=== PATIENT | female | born 1950 | race Caucasian/White ===

== ENCOUNTER 2019-04-12 16:14 | Emergency (ER) | payer MEDICARE, OTHER ==
[~2019-04-12] VITALS: Ht 157.5 cm; Wt 90.8 kg
[~2019-04-12 16:14] MED LIST: AMLO5TAB4 PO; ASPI-817 PO; ATOR40TA68 PO; BENA20TA65 PO; GLIM2TAB PO; LEVA15HF6 INH; LEVO500T10 PO; METO-448 PO; TRAM50TA2 PO
[2019-04-12 16:44] VITALS: Ht 157.5 cm; Wt 90.8 kg
[2019-04-12] MEDS ORDERED: MELO15TA30 PO (17:30)
[2019-04-12] MEDS ORDERED: ACAR50TA PO (17:30)
[2019-04-12] MEDS ORDERED: ASPI-817 PO (17:30)
[2019-04-12] MEDS ORDERED: CHOL200056 PO (17:31)
[2019-04-12] MEDS ORDERED: BENA20TA4 PO (17:31)
[2019-04-12] MEDS ORDERED: ATOR40TA68 PO (17:31)
[2019-04-12] MEDS ORDERED: LINA5TAB PO (17:32)
[2019-04-12] MEDS ORDERED: METF100010 PO (17:32)
[2019-04-12] MEDS ORDERED: KETOROLAC 15 MG INJ IV STA (17:40)
[2019-04-12] MEDS ORDERED: SOD CHLORIDE 0.9% 1,000 ML IV STA (17:40)
--- NOTE | 2019-04-12 18:54 | ERD ---
ER Documentation Chief Complaint Chief Complaint SOB, RIGHT CHEST WALL PAIN, RADIATES TO RIGHT ARM, NO COUGH HPI This is a 69-year-old female who presents to the emergency room complaining of right-sided back pain. History provided by patient with family member interpreting. Patient has had at least 2 to 3 weeks of upper back pain that is worse with rotational movement of the upper extremity and rotational movement of the back. She denies any significant cough or pleuritic discomfort. No fevers or chills no exertional symptoms. Patient is seen primary care physician and started on nonsteroidal anti-inflammatory with mild improvement. She noted an exacerbation of pain today which prompted ER visit. Pain is moderate currently. ROS All systems reviewed and are negative except as per history of present illness. Medications Home Meds Reported Medications Linagliptin (TRADJENTA) 5 Mg Tablet, 5 MG PO DAILY, TAB 04/12/19 Metformin Hcl* (Metformin Hcl*) 1,000 Mg Tablet, 1000 MG PO WITH BREAKFAST DINNE, #60 TAB 04/12/19 Atorvastatin* (Atorvastatin*) 40 Mg Tablet, 40 MG PO QHS, #30 TAB 04/12/19 Benazepril Hcl* (Benazepril Hcl*) 20 Mg Tablet, 20 MG PO DAILY, #30 TAB 04/12/19 Cholecalciferol (Vitamin D3) (Vitamin D-3) 2,000 Unit Tablet, 2000 UNIT PO DAILY, TAB 04/12/19 Meloxicam* (Mobic*) 15 Mg Tablet, 15 MG PO DAILY, #30 TAB 04/12/19 Acarbose* (Precose*) 50 Mg Tablet, 50 MG PO WITH MEALS, TAB 04/12/19 Aspirin* (Aspirin* EC) 81 Mg Tablet.dr, 81 MG PO DAILY, TAB 04/12/19 Discontinued Reported Medications Aspirin* (Aspirin* EC) 81 Mg Tablet.dr, 81 MG PO DAILY, TAB 12/20/15 Atorvastatin* (Atorvastatin*) 40 Mg Tablet, 40 MG PO DAILY 12/19/15 Glimepiride* (Glimepiride*) 2 Mg Tablet, 2 MG PO BID 12/19/15 Discontinued Scripts Tramadol HCl (Tramadol HCl) 50 Mg Tablet, 50 MG PO Q6H PRN for PAIN, #20 TAB Prov:JANUSZ PEPPER SPINNING OPERATOR 12/22/15 Levofloxacin* (Levofloxacin*) 500 Mg Tablet, 500 MG PO DAILY for 7 Days, TAB Prov:JANUSZ PEPPER SPINNING OPERATOR 12/22/15 Metoprolol Tartrate* (Lopressor*) 25 Mg Tab, 25 MG PO BID for 30 Days, TAB Prov:REGJANUSZ CALLEJAS SPINNING OPERATOR 12/22/15 Amlodipine Besylate* (Norvasc*) 5 Mg Tab, 5 MG PO BID for 30 Days, TAB Prov:JANUSZ PEPPER SPINNING OPERATOR 12/22/15 Benazepril Hcl* (Lotensin*) 20 Mg Tab, 20 MG PO DAILY for 30 Days, TAB Prov:REGJANUSZ CALLEJAS SPINNING OPERATOR 12/22/15 Levalbuterol* (Xopenex* HFA) 15 Gm Inha, 1-2 PUFF INH Q4 PRN for SHORTNESS OF BREATH, #1 EA Prov:JANUSZ PEPPER SPINNING OPERATOR 12/22/15 Allergies Allergies: Coded Allergies: No Known Allergy (Unverified , 04/12/19) PMhx/Soc History of Surgery: No Anesthesia Reaction: No Hx Neurological Disorder: No Hx Respiratory Disorders: No Hx Cardiac Disorders: Yes (HRN HI CHOLESTEROL) Hx Psychiatric Problems: No Hx Miscellaneous Medical Probl: Yes (DM) Hx Alcohol Use: No Hx Substance Use: No Hx Tobacco Use: Yes Smoking Status: Former smoker FmHx Family History: No diabetes Physical Exam Vitals Vital Signs Date Temp Pulse Resp B/P (MAP) Pulse Ox O2 O2 Flow FiO2 Time Delivery Rate 04/12/19 92 22 178/91 96 Room Air 18:32 (120) 04/12/19 98.0 102 18 170/93 95 16:44 (118) Physical Exam General: Well developed, well nourished, no acute distress Head: Normocephalic, atraumatic. Eyes: Pupils equally reactive, EOM intact ENT: Moist mucous membranes Neck: Supple, no lymphadenopathy Respiratory: Lungs clear bilaterally, no distress Cardiovascular: RRR, no murmurs, rubs, or gallops Abdominal: Soft, non-tender, non-distended, no peritoneal signs : Deferred MSK: No edema, no unilateral swelling, 5/5 strength, reproducible soft tissue tenderness along the upper back trapezius muscles Neurologic: Alert and oriented, moving all extremities, normal speech, no focal weakness, no cerebellar signs Skin: No rash Psych: Normal mood Result Diagram: 04/12/19174904/12/19 175 Results 24 hrs Laboratory Tests Test 04/12/19 17:50 White Blood Count 11.5 10^3/ul Red Blood Count 4.87 10^6/ul Hemoglobin 13.6 g/dl Hematocrit 43.1 % Mean Corpuscular Volume 88.5 fl Mean Corpuscular Hemoglobin 27.9 pg Mean Corpuscular Hemoglobin Concent 31.6 g/dl Red Cell Distribution Width 14.4 % Platelet Count 315 10^3/UL Mean Platelet Volume 10.3 fl Immature Granulocytes % 0.300 % Neutrophils % 67.9 % Lymphocytes % 24.0 % Monocytes % 6.2 % Eosinophils % 1.0 % Basophils % 0.6 % Nucleated Red Blood Cells % 0.0 /100WBC Immature Granulocytes # 0.040 10^3/ul Neutrophils # 7.8 10^3/ul Lymphocytes # 2.8 10^3/ul Monocytes # 0.7 10^3/ul Eosinophils # 0.1 10^3/ul Basophils # 0.1 10^3/ul Nucleated Red Blood Cells # 0.0 10^3/ul Prothrombin Time 12.1 Sec Prothrombin Time Ratio 0.9 INR International Normalized Ratio 0.89 Activated Partial Thromboplast Time 25.6 Sec D-Dimer 335.76 ng/ml D-Dimer Comment Sodium Level 139 mmol/L Potassium Level 4.3 mmol/L Chloride Level 103 mmol/L Carbon Dioxide Level 23 mmol/L Anion Gap 13 Blood Urea Nitrogen 21 mg/dl Creatinine 0.67 mg/dl Est Glomerular Filtrat Rate mL/min > 60 mL/min Glucose Level 201 mg/dl Calcium Level 9.9 mg/dl Troponin I < 0.012 ng/ml Current Medications Medications Dose Sig/Conor Start Time Status Last (Trade) Ordered Route PRN Stop Time Admin Dose Reason Admin Sodium 1,000 ml @ Q1H STAT 04/12/19 DC 04/12/19 Chloride 1,000 mls/hr IV 17:40 17:57 04/12/19 18:39 Ketorolac 15 mg ONCE STAT 04/12/19 DC 04/12/19 Tromethamine IV 17:40 17:57 (Toradol) 04/12/19 17:41 Procedures/MDM EKG, MONITORS, & DIAGNOSTIC IMAGING: EKG: I reviewed and interpreted a 12-lead EKG. Rhythm: Normal sinus rhythm ST Changes: No contiguous ST segment elevations T waves: No contiguous T wave inversions Impression: No evidence of acute cardiac ischemia Chest x-ray: I reviewed and interpreted a 1 view of the chest Mediastinum: No enlargement Cardiac silhouette: No cardiomegaly Airspace: Clear lung caballero bilaterally without evidence of pneumothorax Bones: No evidence of fracture LAB INTERPRETATION: I reviewed the laboratory testing and it shows no evidence of acute process MEDICAL DECISION MAKING: Patient's presentation seems very consistent with musculoskeletal etiology. The patient has reproducible symptoms, subacute presentation. Her presentation does not seem to be consistent with dissection, acute coronary syndrome or pulmonary embolism. She has no pleuritic pain no risk factors for PE. The patient's blood pressure slightly elevated she has a known history of blood pressure and has very reproducible symptoms. She has had at least 2 weeks of symptoms therefore dissection seems extremely unlikely. I do not believe CT of the chest is necessary. A d-dimer will be appropriate to screen for pulmonary embolism given Wells low risk criteria. ER COURSE: * Laboratory testing is reassuring including negative d-dimer, normal troponin. Chest x-ray imaging normal. No evidence of pneumothorax or pneumonia. * Symptoms improving. * At this point I feel the patient can be safely discharged with close primary care follow-up. Again consider muscular skeletal etiology versus radiculopathy. Return precautions were discussed and understood. CONSULTATION: None DISPOSITION PLAN: The patient does not have an identifiable emergent medical condition that warrants inpatient hospitalization at this time. The patient is deemed safe for discharge with outpatient follow-up. We discussed follow up with the patient's primary care doctor within 24 to 48 hours as needed. We also discussed return to the emergency room for worsening symptoms or worsening condition. Outpatient referral: None required Discharge Medications: None required Departure Diagnosis: Primary Impression: Back pain Back pain location: thoracic back pain Chronicity: acute Back pain laterality: right Qualified Codes: M54.6 - Pain in thoracic spine Condition: Stable Patient Instructions: Back Pain (Acute Or Chronic) [facility]errals[facility] Usted se byrne hecho un examen mdico de control que le indica que no est en fabiana condicin que requiera tratamiento urgente en el Departamento de Emergencia. Un estudio ms profundo y el tratamiento de keita condicin pueden esperar sin ningn riesgo hasta que usted sea atendida/o en el consultorio de keita mdico o fabiana clnica. Es responsabilidad suya arreglar fabiana jonathon para el seguimiento del addi. MANEJO DE CONDICIONES NO URGENTES EN EL FUTURO 1) Si usted tiene un mdico de atencin primaria: Usted debera llamar a keita mdico de atencin primaria antes de venir al departamento de emergencia. Despus de las horas de consultorio, keita doctor o keita asociado/a est disponible por telfono. El mdico o enfermero de radhika en el servicio telefnico puede asesorarle por mike medio para atender el problema, o addi contrario se puede programar fabiana jonathon. 2) Si usted no tiene un mdico de atencin primaria: Llame al mdico o clnica de referencia que aparece abajo ciara las horas de consultorio para hacer fabiana jonathon para que le vean. CLINICAS: [facility] [phone] [address] [facility] [facility] [phone] [facility] [facility] [phone] [address] [facility]. [facility] [phone] [address] [facility] [place] [id number] [phone] [facility]. [phone] [address] [facility]. [facility] YOU HAVE RECEIVED A MEDICAL SCREENING EXAM AND THE RESULTS INDICATE THAT YOU DO NOT HAVE A CONDITION THAT REQUIRES URGENT TREATMENT IN THE EMERGENCY DEPARTMENT. FURTHER EVALUATION AND TREATMENT OF YOUR CONDITION CAN WAIT UNTIL YOU ARE SEEN IN YOUR DOCTORS OFFICE WITHIN THE NEXT 1-2 DAYS. IT IS YOUR RESPONSIBILITY TO MAKE AN APPOINTMENT FOR FOLOW-UP CARE. IF YOU HAVE A PRIMARY DOCTOR --you should call your primary doctor and schedule an appointment IF YOU DO NOT HAVE A PRIMARY DOCTOR YOU CAN CALL OUR PHYSICIAN REFERRAL HOTLINE AT IF YOU CAN NOT AFFORD TO SEE A PHYSICIAN YOU CAN CHOSE FROM THE FOLLOWING [facility] [address] [facility] [address] [facility] [address] [facility] [address] [facility] [address] [facility]. [facility] [address] [facility]. [facility] YOU HAVE RECEIVED A MEDICAL SCREENING EXAM AND THE RESULTS INDICATE THAT YOU DO NOT HAVE A CONDITION THAT REQUIRES URGENT TREATMENT IN THE EMERGENCY DEPARTMENT. FURTHER EVALUATION AND TREATMENT OF YOUR CONDITION CAN WAIT UNTIL YOU ARE SEEN IN YOUR DOCTORS OFFICE WITHIN THE NEXT 1-2 DAYS. IT IS YOUR RESPONSIBILITY TO MAKE AN APPOINTMENT FOR FOLOW-UP CARE. IF YOU HAVE A PRIMARY DOCTOR --you should call your primary doctor and schedule and appointment IF YOU DO NOT HAVE A PRIMARY DOCTOR YOU CAN CALL OUR PHYSICIAN REFERRAL HOTLINE AT . IF YOU CAN NOT AFFORD TO SEE A PHYSICIAN YOU CAN CHOSE FROM THE FOLLOWING [facility] [address] [place] [address] [facility] [address] [place] [address] [facility] [address] [place] [address] [facility] Usted se byrne hecho un examen mdico de control que le indica que no est en fabiana condicin que requiera tratamiento urgente en el Departamento de Emergencia. Un estudio ms profundo y el tratamiento de keita condicin pueden esperar sin ningn riesgo hasta que usted sea atendida/o en el consultorio de keita mdico o fabiana clnica. Es responsabilidad suya arreglar fabiana jonathon para el seguimiento del addi. MANEJO DE CONDICIONES NO URGENTES EN EL FUTURO 1) Si usted tiene un mdico de atencin primaria: Usted debera llamar a keita mdico de atencin primaria antes de venir al departamento de emergencia. Despus de las horas de consultorio, keita doctor o keita asociado/a est disponible por telfono. El mdico o enfermero de radhika en el servicio telefnico puede asesorarle por mike medio para atender el problema, o addi contrario se puede programar fabiana jonathon. 2) Si usted no tiene un mdico de atencin primaria: Llame al mdico o condado institucions de referencia que aparece abajo ciara las horas de consultorio para hacer fabiana jonathon para que le vean. SI USTED NO PUEDE PAGAR PARA TASNEEM UN MEDICO puede ir a: [facility] [address] [place], [place] [address] [place] [address] [address] [place] [address] [facility] [address] [place] [address] [facility] [address] [place], [place] [id number] Additional Instructions: Llame al doctor MAANA y eliud fabiana JONATHON PARA DENTRO DE 2-3 ARRIAZA.Dgale a la secretaria que nosotros le instruimos hacer esta jonathon.Avise o llame si keita condicin se empeora antes de la jonathon. Regresa aqui si peor o no mejor. ANNE DRAPER MD Apr 12, 2019 18:54
[2019-04-12 18:57] VITALS: BP 161/87; PULSE 92; RESP 24
== END 2019-04-12 19:08 | disposition home or self-care (01) ==
LOC: E/R 16:14
DX: M54.6 Pain in thoracic spine (principal); E11.9 Type 2 diabetes mellitus without complications; R07.9 Chest pain, unspecified; Z79.82 Long term (current) use of aspirin; Z79.84 Long term (current) use of oral hypoglycemic drugs; Z87.891 Personal history of nicotine dependence
CPT/HCPCS: 36415; 71045; 80048; 84484; 85025; 85378; 85610; 85730; 93005; 96374; 99285; J1885; J7030